=== PATIENT | female | born 1980 | race Asian ===

== ENCOUNTER → 2021-10-09 | Outpatient (CLI) | payer OTHER | LOC: COL.RAD 13:21 | DX: R59.0 Localized enlarged lymph nodes (principal) ==

== ENCOUNTER 2023-08-31 15:39 | Emergency (ER) | payer OTHER ==
[~2023-08-31] VITALS: Ht 156 cm; Wt 59.0 kg
[2023-08-31 15:55] VITALS: TEMP 98.3
[2023-08-31 18:38] LABS: BASO % 0.5 % (0.0-2.0); EOS # 0.1 K/mm3 (0.0-0.7); EOS % 0.8 % (0.0-4.0); GRAN # 3.9 K/mm3 (1.4-6.5); GRAN % 63.7 % (42.2-75.2); HEMATOCRIT 36.5 % (37.0-47.0); HEMOGLOBIN 11.3 g/dl (12.5-16.0); LYMPH # 1.8 K/mm3 (1.2-3.4); LYMPH % 29.9 % (20.0-51.0); MEAN CELL VOLUME 81 fl (80.0-100.0); MEAN CORPUSCULAR HEMOGLOBIN 25 pg (27-31); MEAN CORPUSCULAR HGB CONC 31 g/dl (33.0-37.0); MEAN PLATELET VOLUME 9.5 fl (7.4-10.4); MONO # 0.3 K/mm3 (0.1-0.6); MONO % 4.9 % (1.7-9.3); PLATELET COUNT 328 K/mm3 (130-400); RED BLOOD COUNT 4.53 M/mm3 (4.10-5.30); REDCELL DISTRIBUTION WIDTH-CV 15.9 % (11.5-14.5)
[2023-08-31 19:16] VITALS: BP 136/81; PULSE 74
== END 2023-08-31 19:14 | disposition home or self-care (01) ==
LOC: COL.ER 15:39
PROVIDERS: Physician Assistant
DX: S39.91XA Unspecified injury of abdomen, initial encounter (principal); N93.9 Abnormal uterine and vaginal bleeding, unspecified; W22.8XXA Striking against or struck by other objects, initial encounter; Y99.0 Civilian activity done for income or pay

== ENCOUNTER 2024-03-10 13:14 | Emergency (ER) | payer OTHER ==
[~2024-03-10] VITALS: Ht 154.9 cm; Wt 60.0 kg
[2024-03-10 16:14] VITALS: BP 103/68; PULSE 66; TEMP 98
== END 2024-03-10 16:16 | disposition home or self-care (01) ==
LOC: COL.ER 13:14
DX: J39.2 Other diseases of pharynx (principal)